=== PATIENT | male | born 1970 | race Caucasian/White ===

== ENCOUNTER 2016-07-10 12:51 | Emergency (ER) | payer OTHER ==
[2016-07-10 12:55] VITALS: BP 150/65; PULSE 99; TEMP 97.9; BMI 34.2
[2016-07-10] MEDS ORDERED: ALBUTEROL SO4 2.5/IPRATROPIUM 0.5 INH SOL 3 ML VIAL.NEB. NEB ONE ×4 (12:57→13:40)
[2016-07-10] MEDS ORDERED: predniSONE 20 MG TABLET (UD) PO ONE (13:20)
[2016-07-10] MEDS ORDERED: predniSONE 20 MG TABLET (UD) ONE (13:22)
--- NOTE | 2016-07-10 13:46 | PDOC ---
History of Present Illness - General Chief Complaint: Asthma Stated Complaint: ASTHMA, WHEEZING Time Seen by Provider: 07/10/16 13:05 History Source: Patient Exam Limitations: No Limitations - History of Present Illness Initial Comments: 07/10/16 13:41 45 yr male with c/o asthma exacerbation after cleaning out bird cages in his apt yesterday. Pt has asthma well controlled at baseline. Pt currently taking Augmentin for URI. Pt has no fever no chest pain. 07/10/16 13:44 07/10/16 17:25 Past History - Past Medical History Allergies/Adverse Reactions: Allergies Allergy/AdvReac Type Severity Reaction Status Date / Time No Known Allergies Allergy Verified 07/10/16 12:55 Home Medications: Ambulatory Orders Albuterol 0.083% Nebulizer Dianna [Ventolin 0.083%] 1 neb NEB Q4H #1 vial 11/07/13 Augmentin 875-125 Tablet mg PO BID 07/10/16 Montelukast Sodium [Singulair] 4 mg PO HS #14 tab.chew 07/10/16 Prednisone [Deltasone -] 40 mg PO DAILY #10 tablet 07/10/16 Asthma: Yes - Family Disease History Comment:: 07/10/16 13:45 denies - Immunization History Immunization Up to Date: Yes - Psycho/Social/Smoking Cessation Hx Anxiety: No Suicidal Ideation: No Smoking Status: No Smoking History: Never smoked Have you smoked in the past 12 months: No Number of Cigarettes Smoked Daily: 0 Information on smoking cessation initiated: No Hx Alcohol Use: No Drug/Substance Use Hx: No Substance Use Type: None Respiratory Specific PMHX - Complaint Specific PMHX Angina: No Bronchitis: Yes Review of Systems - Review of Systems Able to Perform ROS?: Yes Is the patient limited [place] proficient: No Constitutional: No: Symptoms Reported HEENTM: No: Symptoms Reported Respiratory: Yes: See HPI *Physical Exam - Vital Signs Last Vital Signs Temp Pulse Resp BP Pulse Ox 97.9 F 99 H 18 150/65 96 07/10/16 12:54 07/10/16 12:54 07/10/16 12:54 07/10/16 12:54 07/10/16 12:54 - Physical Exam General Appearance: Yes: Nourished, Appropriately Dressed HEENT: positive: EOMI, VARUN, Normal ENT Inspection, TMs Normal, Pharynx Normal Neck: positive: Supple. negative: Tender Respiratory/Chest: positive: Normal Breath Sounds, Wheezing. negative: Rhonchi , Stridor Cardiovascular: positive: Regular Rhythm, Regular Rate Gastrointestinal/Abdominal: positive: Normal Bowel Sounds, Soft Musculoskeletal: positive: Normal Inspection Extremity: positive: Normal Capillary Refill, Normal Inspection, Normal Range of Motion Integumentary: positive: Normal Color, Dry, Warm Neurologic: positive: Fully Oriented, Alert, Normal Mood/Affect, Normal Response , Motor Strength 08/27 ED Treatment Course - Medications Given in the ED: ED Medications Discontinued Medications Generic Name Dose Route Start Last Admin Trade Name Freq PRN Reason Stop Dose Admin Albuterol/Ipratropium 1 amp 07/10/16 12:57 07/10/16 12:57 Duoneb - NEB 07/10/16 12:58 1 amp NOW ONE Administration Albuterol/Ipratropium 1 amp 07/10/16 13:20 07/10/16 13:24 Duoneb - NEB 07/10/16 13:21 1 amp ONCE ONE Administration Prednisone 60 mg 07/10/16 13:20 07/10/16 13:25 Deltasone - PO 07/10/16 13:21 60 mg ONCE ONE Administration Medical Decision Making - Medical Decision Making 07/10/16 13:48 cc: cough wheezing speaking clear sentences no distress will give duoneb, prednisone 07/10/16 17:28 pt improved after nebulizers , speaking full sentences clearly dc home with strict follow up with pulmonary next week pt understands the dc inst all questions asked and answered *DC/Admit/Observation/Transfer Diagnosis at time of Disposition: Asthma exacerbation Qualifiers: Asthma severity: mild intermittent Qualified Code(s): J45.21 - Mild intermittent asthma with (acute) exacerbation - Discharge Dispostion Disposition: HOME Condition at time of disposition: Good - Prescriptions Prescriptions: Prednisone [Deltasone -] 40 mg PO DAILY #10 tablet Montelukast Sodium [Singulair] 4 mg PO HS #14 tab.chew - Patient Instructions Printed Discharge Instructions: Asthma -- Adult Additional Instructions: drink pleanty of fluids rest at home take singulair as directed at bedtime take prednisone, next dose tomorrow follow with your doctor next week - Post Discharge Activity Work/School Note: Back to Work
== END 2016-07-10 14:28 | disposition home or self-care (01) ==
LOC: JERFT 12:51
PROC: 3E0F7GC Introduction of Other Therapeutic Substance into Respiratory Tract, Via Natural or Artificial Opening (ICD-10-PCS; principal; 2016-07-10)
PROC: 3E0F7GC Introduction of Other Therapeutic Substance into Respiratory Tract, Via Natural or Artificial Opening (ICD-10-PCS; 2016-07-10)
DX: J45.21 Mild intermittent asthma with (acute) exacerbation (principal)
CPT/HCPCS: 99281-25

== ENCOUNTER 2016-11-03 03:03 | Emergency (ER) | payer OTHER ==
[2016-11-03] MEDS ORDERED: ALBUTEROL SO4 2.5/IPRATROPIUM 0.5 INH SOL 3 ML VIAL.NEB. NEB ONE (03:09)
--- NOTE | 2016-11-03 03:18 | PDOC ---
History of Present Illness - General History Source: Patient <Ethan Cotton - Last Filed: 11/03/16 03:53> - General History Source: Patient Exam Limitations: No Limitations - History of Present Illness Initial Comments: 11/03/16 04:01 The patient is a 45 year old male with significant past medical history of asthma (no h/o of intubations) who presents to the ED for asthma exacerbation prior to arrival. Patient reports he was outside in the humidity and when he went inside into a much cooler office, he began to feel chest tightness. Patient also reports coughing, SOB and wheezing. Denies conversational dyspnea or dyspnea on exertion. States having multiple episodes of asthma exacerbations that is normally treated with prednisone. Last hospitalization for asthma exacerbation was in the 90s. The patient denies fever, chills, diaphoresis, chest pain, and palpitations. The patient denies abdominal pain, nausea, vomiting, and diarrhea. Allergies: NKDA Social History: No alcohol, tobacco, or drug use reported. Past Surgical History: None reported PCP: None reported <Earnestine Cronin - Last Filed: 11/03/16 04:02> - General Stated Complaint: ASTHMA Time Seen by Provider: 11/03/16 03:16 Past History - Past Medical History Asthma: Yes - Immunization History Immunization Up to Date: Yes - Psycho/Social/Smoking Cessation Hx Anxiety: No Suicidal Ideation: No Smoking Status: No Smoking History: Never smoked Have you smoked in the past 12 months: No Number of Cigarettes Smoked Daily: 0 Hx Alcohol Use: No Drug/Substance Use Hx: No Substance Use Type: None <LulaEthan - Last Filed: 11/03/16 03:53> <Earnestine Cronin - Last Filed: 11/03/16 04:02> - Past Medical History Allergies/Adverse Reactions: Allergies Allergy/AdvReac Type Severity Reaction Status Date / Time No Known Allergies Allergy Verified 11/03/16 03:43 Home Medications: Ambulatory Orders Albuterol 0.083% Nebulizer Dianna [Ventolin 0.083%] 1 neb NEB Q4H #1 vial 11/07/13 Augmentin 875-125 Tablet mg PO BID 07/10/16 Montelukast Sodium [Singulair] 4 mg PO HS #14 tab.chew 03/18/17 Prednisone [Deltasone -] 40 mg PO DAILY #10 tablet 07/10/16 Albuterol 0.083% Nebulizer Dianna [Ventolin 0.083% Nebulizer Soln -] 1 neb NEB Q6H #30 vial 11/03/16 Methylprednisolone [Medrol Dose Kobi] 4 mg PO ASDIR #21 tablet 11/03/16 Review of Systems - Review of Systems Able to Perform ROS?: Yes Comments:: 11/03/16 04:01 CONSTITUTIONAL: Absent: fever, no chills, no fatigue EYES: Absent: visual changes ENT: Absent: ear pain, no sore throat CARDIOVASCULAR: Absent: chest pain, no palpitations RESPIRATORY: +cough, SOB, chest tightness, wheezing GI: Absent: abdominal pain, no nausea, no vomiting, no constipation, no diarrhea GENITOURINARY: Absent: dysuria, no frequency, no hematuria MUSCULOSKELETAL: Absent: back pain, no arthralgia, no myalgia SKIN: Absent: rash NEURO: Absent: headache <Earnestine Cronin - Last Filed: 11/03/16 04:02> *Physical Exam - Vital Signs Last Vital Signs Temp Pulse Resp BP Pulse Ox 98.7 F 73 16 113/80 100 11/03/16 03:43 11/03/16 03:43 11/03/16 03:43 11/03/16 03:43 11/03/16 03:43 - Physical Exam Comments: 11/03/16 04:01 GENERAL: Well-appearing, well-nourished. No apparent distress. HEENT: Normocephalic, atraumatic. PERRL, EOM intact. CARDIOVASCULAR: Normal S1, S2. Regular rate and rhythm. PULMONARY: Mild respiratory distress. Coarse bilateral wheezing. No conversational dyspnea. No retractions. ABDOMEN: Soft, non-distended, non-tender. EXTREMITIES: Normal ROM in all four extremities. No gross deformities. SKIN: Warm, dry. No rash NEUROLOGICAL: No focal neurological deficits. <Earnestine Cronin - Last Filed: 11/03/16 04:02> ED Treatment Course - Medications Given in the ED: ED Medications Discontinued Medications Generic Name Dose Route Start Last Admin Trade Name Freq PRN Reason Stop Dose Admin Prednisone 60 mg 11/03/16 03:19 11/03/16 03:34 Deltasone - PO 11/03/16 03:20 60 mg ONCE ONE Administration <Earnestine Cronin - Last Filed: 11/03/16 04:02> Medical Decision Making - Medical Decision Making 11/03/16 03:57 Dr. Cotton: The scribe's documentation has been prepared under my direction and personally reviewed by me in its entirery. I confirm that the note above accurately reflects all work, treatment, procedures, and medical decision making performed by me. 11/03/16 03:57 Pt feels better after an albuterol nebulizer. No BERGMAN. Pt to be discharged <Ethan Cotton - Last Filed: 11/03/16 03:53> *DC/Admit/Observation/Transfer - Discharge Dispostion Admit: No <Ethan Cotton - Last Filed: 11/03/16 03:53> - Attestations Scribe Attestion: 11/03/16 04:01 Documentation prepared by Earnestine Cronin, acting as medical record specialist for Ethan Cotton MD/DO. <Earnestine Cronin - Last Filed: 11/03/16 04:02> Diagnosis at time of Disposition: Asthma exacerbation - Discharge Dispostion Disposition: HOME Condition at time of disposition: Stable - Prescriptions Prescriptions: Methylprednisolone [Medrol Dose Kobi] 4 mg PO ASDIR #21 tablet Albuterol 0.083% Nebulizer Dianna [Ventolin 0.083% Nebulizer Soln -] 1 neb NEB Q6H #30 vial - Referrals Referrals: STAFF,NOT ON [Primary Care Provider] - Mahin Garnica MD [Staff Physician] - - Patient Instructions Printed Discharge Instructions: Asthma -- Adult - Post Discharge Activity Work/School Note: Back to Work
[2016-11-03] MEDS ORDERED: predniSONE 20 MG TABLET (UD) PO ONE (03:19)
[2016-11-03] MEDS ORDERED: predniSONE 20 MG TABLET (UD) ONE (03:31)
[2016-11-03 03:46] VITALS: BP 113/80; PULSE 73; TEMP 98.7; BMI 35.6
== END 2016-11-03 04:02 | disposition home or self-care (01) ==
LOC: JER 03:03
PROC: 3E0F7GC Introduction of Other Therapeutic Substance into Respiratory Tract, Via Natural or Artificial Opening (ICD-10-PCS; principal; 2016-11-03)
DX: J45.901 Unspecified asthma with (acute) exacerbation (principal)
CPT/HCPCS: 99281-25

== ENCOUNTER 2017-04-01 05:55 | Emergency (ER) | payer OTHER ==
[2017-04-01 06:05] VITALS: BP 123/83; PULSE 93; TEMP 97.6; BMI 37.4
--- NOTE | 2017-04-01 07:16 | PDOC ---
History of Present Illness - General Chief Complaint: Cold Symptoms Stated Complaint: COUGH Time Seen by Provider: 04/01/17 07:12 History Source: Patient - History of Present Illness Initial Comments: 04/01/17 07:46 46yo man with PMH of asthma (no h/o intubations) who presents with 1x day of productive cough and dyspnea. He was at the veterinary office yesterday when his cough started. He has cats at home, but feels the exposure to dogs may have exacerbated his allergies. Around 3AM he started to feel sob, which was unrelieved by Albuterol inhaler, which initiated him to come to the ED. He was recently treated with a course of steroids completed 1.5 weeks ago. No recent antibiotic use. 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 No recent travel. He denies any fever, chills, sore throat. No dysuria or changed in BM. Past History - Travel Traveled outside of the country in the last 30 days: No Close contact w/someone who was outside of country & ill: No - Past Medical History Allergies/Adverse Reactions: Allergies Allergy/AdvReac Type Severity Reaction Status Date / Time No Known Allergies Allergy Verified 04/01/17 06:03 Home Medications: Ambulatory Orders Albuterol 0.083% Nebulizer Dianna [Ventolin 0.083%] 1 neb NEB Q4H #1 vial 11/07/13 Asthma: Yes - Immunization History Immunization Up to Date: Yes - Suicide/Smoking/Psychosocial Hx Smoking Status: No Smoking History: Never smoked Have you smoked in the past 12 months: No Number of Cigarettes Smoked Daily: 0 Information on smoking cessation initiated: No Hx Alcohol Use: No Drug/Substance Use Hx: No Substance Use Type: None *Physical Exam - Vital Signs Last Vital Signs Temp Pulse Resp BP Pulse Ox 97.6 F 93 H 24 123/83 97 04/01/17 06:03 04/01/17 06:03 04/01/17 06:03 04/01/17 06:03 04/01/17 06:03 - Physical Exam General Appearance: Yes: Nourished, Appropriately Dressed HEENT: positive: TMs Normal, Pharynx Normal Neck: positive: Supple. negative: Lymphadenopathy (R), Lymphadenopathy (L) Respiratory/Chest: positive: Lungs Clear, Normal Breath Sounds, Other. negative : Wheezing Cardiovascular: positive: Regular Rhythm, Regular Rate, S1, S2 Gastrointestinal/Abdominal: positive: Soft, Protuberent. negative: Tenderness Neurologic: positive: Fully Oriented, Alert ED Treatment Course - RADIOLOGY Radiology Studies Ordered: Category Date Time Status CHEST PA & LAT [RAD] Stat Radiology 04/01/17 07:13 Ordered Medical Decision Making - Medical Decision Making 04/01/17 08:05 46yo man with productive cough and dyspnea for less than 24hours. Patient had received 1 duo neb prior to my physical exam, which has improved his symptoms. He is speaking in full sentences without dyspnea and walking to the restroom without distress. No wheezes appreciated on physical exam. Will give another duo neb treatment and reassess. 04/01/17 08:08 Peak flow 450 x2. 04/01/17 09:27 Patient's breathing improved with 2nd duo neb. No further episodes of wheezing. Patient is well appearing and vital signs are stable. Patient's reports he his going to see his PCP Dr. Cordova directly from here. *DC/Admit/Observation/Transfer Diagnosis at time of Disposition: Asthma exacerbation - Discharge Dispostion Disposition: HOME Condition at time of disposition: Stable Admit: No - Referrals Referrals: Josemanuel Cordova [Primary Care Provider] - - Patient Instructions Printed Discharge Instructions: DI for Asthma -- Adult Additional Instructions: Please make an appointment with your primary care physician in the next 2-3 days. Continue to take your Albuterol inhaler as directed. Please return to the Emergency Department if you feel continually short of breath, you have new, worsening, or concerning symptoms. - Post Discharge Activity Forms/Work/School Notes: Back to Work
--- NOTE | 2017-04-01 07:23 | PDOC ---
Attending Attestation - Resident Resident Name: Cathryn Juarez - HPI HPI: 04/01/17 07:56 pt presents to the ED complaining of a 12 hour history of cough, wheezing and shortness of breath consistent with prior asthma exacerbations. Denies fever. Recent history of a similar asthma exacerbation, which was treated with nebs and steroids. Patient reports improvement in his symptoms with duoneb x 1. - Physicial Exam PE: 04/01/17 08:01 Agree with resident exam. Patient is speaking in complete sentences without respiratory distress. Lungs are clear with good air entry. - Medical Decision Making 04/01/17 08:04 Pt presents to the ED with wheezing and cough consistent with prior asthma exacerbations that has lasted less than 12 hours. Dramatic improvement with duonebs. Will discharge home with follow up with PMD.
[2017-04-01] MEDS ORDERED: ALBUTEROL SO4 2.5/IPRATROPIUM 0.5 INH SOL 3 ML VIAL.NEB. NEB ONE ×2 (07:56→08:13)
== END 2017-04-01 09:15 | disposition home or self-care (01) ==
LOC: JER 05:55
PROC: 3E0F7GC Introduction of Other Therapeutic Substance into Respiratory Tract, Via Natural or Artificial Opening (ICD-10-PCS; principal; 2017-04-01)
DX: J45.901 Unspecified asthma with (acute) exacerbation (principal)
CPT/HCPCS: 71020-TC; 99281-25

== ENCOUNTER 2017-04-21 11:00 | Emergency (ER) | payer OTHER ==
[2017-04-21 11:14] VITALS: BP 131/82; PULSE 83; TEMP 97; BMI 37.4
[2017-04-21] MEDS ORDERED: TOBRAMYCIN 0.3% OPHTH SOLN 5 ML BOTTLE OD ONE (11:33)
--- NOTE | 2017-04-21 11:36 | PDOC ---
History of Present Illness - General Chief Complaint: Eye Problem Stated Complaint: EYE PROBLEM Time Seen by Provider: 04/21/17 11:22 History Source: Patient Exam Limitations: No Limitations - History of Present Illness Initial Comments: 04/21/17 11:30 CHIEF COMPLAINT: Woke up today with redness and drainage to the right eye. HISTORY OF PRESENT ILLNESS: Patient is a 46-year-old male with history of environmental allergens, chronic sinusitis with no sinus pain now, and asthma woke up this morning with drainage and tearing to right eye, denies pain or visual disturbance. No photophobia. Unknown injury reports having multiple cats in his home. Visual acuity is 20/20. Does not wear corrective lenses. REVIEW OF SYSTEMS: GENERAL/CONSTITUTIONAL: No fever or chills. No weakness. No weight change. HEAD, EYES, EARS, NOSE AND THROAT: No change in vision. Drainage and redness to right eye. No ear pain or discharge. No sore throat. RESPIRATORY: No cough, wheezing, or hemoptysis. SKIN : No rash or easy bruising. NEUROLOGIC: No headache, vertigo, loss of consciousness, or loss of sensation. HEMATOLOGIC/LYMPHATIC: No lymphadenopathy ALLERGIC/IMMUNOLOGIC: No hives or skin allergy. No latex allergy. PHYSICAL EXAM: GENERAL: The patient is awake, alert, and fully oriented, in no acute distress. HEAD: Normal with no signs of trauma. EYES: Pupils equal, round and reactive to light, extraocular movements intact, sclera anicteric, conjunctiva injected, extending to limbus after fluorescein staining, no corneal abrasion noted. No frontal sinus pressure or pain. ENT: Ears normal, nares patent, oropharynx clear without exudates. Moist mucous membranes. NECK: Normal range of motion, supple without lymphadenopathy, JVD, or masses. LUNGS: Breath sounds equal, clear to auscultation bilaterally. No wheezes, and no crackles. NEUROLOGICAL: Cranial nerves II through XII grossly intact. Normal speech, normal gait. SKIN: No erythema no facial edema. Warm, Dry, normal turgor, no rashes or lesions noted. 04/21/17 11:33 Past History - Past Medical History Allergies/Adverse Reactions: Allergies Allergy/AdvReac Type Severity Reaction Status Date / Time No Known Allergies Allergy Verified 04/21/17 11:14 Home Medications: Ambulatory Orders Albuterol 0.083% Nebulizer Dianna [Ventolin 0.083% Nebulizer Soln -] 1 neb NEB Q4H #1 vial 11/07/13 Tobramycin 0.3% Ophth Soln [Tobrex *Ophthalmic Solution*] 1 drop OD Q4HWA #1 drops 04/21/17 Asthma: Yes CVA: No COPD: No - Immunization History Immunization Up to Date: Yes - Suicide/Smoking/Psychosocial Hx Smoking Status: No Smoking History: Never smoked Have you smoked in the past 12 months: No Number of Cigarettes Smoked Daily: 0 Hx Alcohol Use: No Drug/Substance Use Hx: No Substance Use Type: None *Physical Exam - Vital Signs Last Vital Signs Temp Pulse Resp BP Pulse Ox 97 F L 83 18 131/82 99 04/21/17 11:12 04/21/17 11:12 04/21/17 11:12 04/21/17 11:12 04/21/17 11:12 Medical Decision Making - Medical Decision Making 04/21/17 11:32 A/P: Patient here for evaluation of redness with tearing to right eye no injury , no point no abrasion, clinical signs highly suspicious for conjunctivitis patient is following up with ophthalmology will DC patient on Tobrex. I discussed the physical exam findings, ancillary test results and final diagnoses with the patient. I answered all of the patient's questions. The patient was satisfied with the care received and felt comfortable with the discharge plan and treatment plan. The patient will call to arrange follow-up and will return to the Emergency Department with any new, persistent or worsening symptoms. 04/21/17 11:34 *DC/Admit/Observation/Transfer Diagnosis at time of Disposition: Conjunctivitis Qualifiers: Conjunctivitis type: acute Acute conjunctivitis type: unspecified Laterality: right Qualified Code(s): H10.31 - Unspecified acute conjunctivitis, right eye - Discharge Dispostion Disposition: HOME Condition at time of disposition: Good Admit: No - Prescriptions Prescriptions: Tobramycin 0.3% Ophth Soln [Tobrex *Ophthalmic Solution*] 1 drop OD Q4HWA #1 drops - Referrals Referrals: Hever Fuller MD [Staff Physician] - - Patient Instructions Printed Discharge Instructions: Conjunctivitis Additional Instructions: * Refrain from touching or scratching eye * Please wash hands frequently * Please followup with his primary care doctor in 2 days if symptoms persist * Medication as prescribed * Warm compresses to eye * If increased redness, swelling, pain to the eye please follow up with primary care doctor immediately or return to emergency room - Post Discharge Activity Forms/Work/School Notes: Back to Work
[2017-04-21] MEDS ORDERED: TOBRAMYCIN 0.3% OPHTH SOLN 5 ML BOTTLE ONE (11:37)
== END 2017-04-21 11:40 | disposition home or self-care (01) ==
LOC: JERFT 11:00
DX: H10.31 Unspecified acute conjunctivitis, right eye (principal)
CPT/HCPCS: 99281-25

== ENCOUNTER 2017-08-21 10:28 | Emergency (ER) | payer OTHER | END 2017-08-21 11:30 | disposition home or self-care (01) | LOC: JERFT 10:28 | CPT/HCPCS: 73070-TC-LT-FY; 99281-25 ==

== ENCOUNTER 2018-01-06 14:58 | Emergency (ER) | payer OTHER ==
--- NOTE | 2018-01-06 15:14 | PDOC ---
Rapid Medical Evaluation Time Seen by Provider: 01/06/18 15:12 Medical Evaluation: Allergies Allergy/AdvReac Type Severity Reaction Status Date / Time No Known Allergies Allergy Verified 08/21/17 10:30 01/06/18 15:13 I have performed a brief in-person evaluation of this patient. The patient presents with a chief complaint of:R foot injury today Pertinent physical exam findings:ttp to mid aspect of R 5th metatarsal, no swelling I have ordered the following:xray The patient will proceed to the ED for further evaluation. Discharge Disposition - Diagnosis Foot injury Qualifiers: Encounter type: initial encounter Laterality: right Qualified Code(s): S99.921A - Unspecified injury of right foot, initial encounter - Referrals - Patient Instructions - Post Discharge Activity
[2018-01-06 15:17] VITALS: BP 136/90; PULSE 88; TEMP 99.1; BMI 35.6
[2018-01-06] MEDS ORDERED: IBUPROFEN 400 MG TABLET (FP) PO ONE (16:25)
--- NOTE | 2018-01-06 16:28 | PDOC ---
History of Present Illness - General Chief Complaint: Pain Stated Complaint: RIGHT FOOT PAIN Time Seen by Provider: 01/06/18 15:12 History Source: Patient Exam Limitations: No Limitations - History of Present Illness Initial Comments: 01/06/18 16:29 47 yr male twisted right foot Sept 10th in a parking lot then today stepped on the cat tail and twisted the foot causing more pain . Past History - Past Medical History Allergies/Adverse Reactions: Allergies Allergy/AdvReac Type Severity Reaction Status Date / Time No Known Allergies Allergy Verified 01/06/18 15:14 Home Medications: Ambulatory Orders NK [No Known Home Medication] 08/21/17 Asthma: Yes CVA: No COPD: No DVT: No - Immunization History Immunization Up to Date: Yes - Suicide/Smoking/Psychosocial Hx Smoking Status: No Smoking History: Never smoked Have you smoked in the past 12 months: No Number of Cigarettes Smoked Daily: 0 Hx Alcohol Use: No Drug/Substance Use Hx: No Substance Use Type: None *Physical Exam - Vital Signs Last Vital Signs Temp Pulse Resp BP Pulse Ox 99.1 F 88 18 136/90 99 01/06/18 15:15 01/06/18 15:15 01/06/18 15:15 01/06/18 15:15 01/06/18 15:15 - Physical Exam General Appearance: Yes: Nourished, Appropriately Dressed HEENT: positive: EOMI, VARUN Extremity: positive: Normal Capillary Refill, Normal Inspection, Tender (base of fifth metatarsal right foot , nv intact) Integumentary: positive: Normal Color, Dry, Warm Neurologic: positive: Fully Oriented, Alert, Normal Mood/Affect, Normal Response , Motor Strength 5/5 *DC/Admit/Observation/Transfer Diagnosis at time of Disposition: Foot injury Qualifiers: Encounter type: initial encounter Laterality: right Qualified Code(s): S99.921A - Unspecified injury of right foot, initial encounter Foot fracture, right Qualifiers: Encounter type: initial encounter Fracture type: closed Qualified Code(s): S92.901A - Unspecified fracture of right foot, initial encounter for closed fracture - Discharge Dispostion Disposition: HOME Condition at time of disposition: Good - Referrals Referrals: Josemanuel Cordova [Primary Care Provider] - Julio César Iyer MD [Staff Physician] - - Patient Instructions Additional Instructions: follow with elevate and apply ice every 2hrs for 20 minutes for the next 2 days while awake take ibuprofen 800mg every 6-8hrs for pain use the schuyler wrap and the hard sole shoe - Post Discharge Activity Forms/Work/School Notes: Back to Work
== END 2018-01-06 17:14 | disposition home or self-care (01) ==
LOC: JER 14:58 → JERFT 14:58
DX: S99.921A Unspecified injury of right foot, initial encounter (principal); X58.XXXA Exposure to other specified factors, initial encounter; Y93.89 Activity, other specified; Y92.9 Unspecified place or not applicable; S92.901A Unspecified fracture of right foot, initial encounter for closed fracture; W55.09XA Other contact with cat, initial encounter; Y92.410 Unspecified street and highway as the place of occurrence of the external cause; J45.909 Unspecified asthma, uncomplicated
CPT/HCPCS: 73630-TC-RT-FY; 99281-25

== ENCOUNTER 2018-05-29 06:30 | Emergency (ER) | payer OTHER | END 2018-05-29 10:53 | disposition home or self-care (01) | LOC: JER 06:30 ==

== ENCOUNTER 2020-09-02 05:17 | Emergency (ER) | payer OTHER ==
[2020-09-02 05:28] VITALS: TEMP 97.8; BMI 35.6
[2020-09-02] MEDS ORDERED: ALBUTEROL SO4 2.5/IPRATROPIUM 0.5 INH SOL 3 ML VIAL.NEB. NEB ONE ×2 (05:40→06:07)
[2020-09-02] MEDS ORDERED: methylPREDNISolone NA SUCC 125 MG/2 ML VIAL IVPUSH ONE (05:41)
[2020-09-02] MEDS ORDERED: methylPREDNISolone NA SUCC 125 MG/2 ML VIAL ONE (05:43)
[2020-09-02 06:19] LABS: BASO % 0.8 % (0-2.0); EOS % 3.3 % (0-4.5); HEMATOCRIT 40.8 % (35.4-49); LYMPH % 39.7 % (8-40); MCH 37.2 pg (25.7-33.7); MCHC 36.8 g/dl (32.0-35.9); MEAN CELL VOLUME 101.3 fl (80-96); MEAN PLT VOLUME 7.8 fl (7.5-11.1); NEUT % 47.2 % (42.8-82.8); PLATELET COUNT 107 K/MM3 (134-434); RBC 4.03 M/mm3 (4.00-5.60); RDW 13.9 % (11.9-15.9); WHITE BLOOD COUNT 3.7 K/mm3 (4.0-10.0)
[2020-09-02 06:30] LABS: CHLORIDE 103 mmol/L (98-107); SODIUM 121 mmol/L (136-145)
[2020-09-02 06:33] LABS: ALBUMIN 2.8 g/dl (3.4-5.0); BLOOD UREA NITROGEN 23.1 mg/dL (7-18); CALCIUM 7.1 mg/dL (8.5-10.1); CO2 26 mmol/L (21-32); GLUCOSE,RANDOM 97 mg/dL (74-106)
[2020-09-02 06:36] LABS: CREATININE 0.9 mg/dL (0.55-1.3)
[2020-09-02 07:01] LABS: ANION GAP -8 MMOL/L (8-16); TOT PROT 9.2 g/dl (6.4-8.2)
[2020-09-02 07:31] LABS: CALCIUM 7.9 mg/dL (8.5-10.1)
[2020-09-02 07:32] LABS: BLOOD UREA NITROGEN 20.9 mg/dL (7-18)
[2020-09-02 07:35] LABS: CREATININE 0.9 mg/dL (0.55-1.3)
[2020-09-02 07:39] LABS: N-TERMINAL BNP 17.8 pg/ml (5-125)
[2020-09-02 08:05] VITALS: BP 144/88; PULSE 108
[2020-09-02 08:09] LABS: BLOOD UREA NITROGEN 20.9 mg/dL (7-18); CALCIUM 8.1 mg/dL (8.5-10.1)
[2020-09-02 08:13] LABS: CREATININE 0.9 mg/dL (0.55-1.3)
[2020-09-02 08:17] LABS: N-TERMINAL BNP 17.8 pg/ml (5-125)
== END 2020-09-02 08:05 | disposition home or self-care (01) ==
LOC: JER 05:17
PROC: 3E0F7GC Introduction of Other Therapeutic Substance into Respiratory Tract, Via Natural or Artificial Opening (ICD-10-PCS; principal; 2020-09-02)
PROC: 3E033GC Introduction of Other Therapeutic Substance into Peripheral Vein, Percutaneous Approach (ICD-10-PCS; 2020-09-02)
DX: J45.21 Mild intermittent asthma with (acute) exacerbation (principal)
CPT/HCPCS: 36415; 71045-TC-FY; 80048; 80053; 82550; 83880; 84484; 85025; 93005; 93010; 99285-25

== ENCOUNTER 2021-01-10 05:49 | Emergency (ER) | payer OTHER ==
[2021-01-10 06:03] VITALS: PULSE 82; TEMP 98.5; BMI 36.6
[2021-01-10 08:28] VITALS: BP 136/92
== END 2021-01-10 08:30 | disposition home or self-care (01) ==
LOC: JER 05:49
DX: J45.909 Unspecified asthma, uncomplicated (principal)
CPT/HCPCS: 99283-25

== ENCOUNTER 2021-01-29 05:59 | Emergency (ER) | payer OTHER ==
[2021-01-29 06:08] VITALS: BP 140/76; PULSE 90; TEMP 98.8; BMI 35.2
== END 2021-01-29 08:50 | disposition home or self-care (01) ==
LOC: JER 05:59
DX: M79.671 Pain in right foot (principal)
CPT/HCPCS: 73630-TC-RT-FY; 99283-25

== ENCOUNTER 2021-02-20 06:09 | Emergency (ER) | payer OTHER ==
[2021-02-20 06:16] VITALS: BP 122/89; PULSE 89; TEMP 98; BMI 42.3
[2021-02-20] MEDS ORDERED: ALBUTEROL SO4 2.5/IPRATROPIUM 0.5 INH SOL 3 ML VIAL.NEB. NEB ONE ×2 (06:18→06:27)
[2021-02-20] MEDS ORDERED: predniSONE 20 MG TABLET (UD) PO ONE (06:19)
[2021-02-20] MEDS ORDERED: predniSONE 20 MG TABLET (UD) ONE (06:27)
== END 2021-02-20 06:46 | disposition home or self-care (01) ==
LOC: FER 06:09
PROC: 3E0F7GC Introduction of Other Therapeutic Substance into Respiratory Tract, Via Natural or Artificial Opening (ICD-10-PCS; principal; 2021-02-20)
DX: J45.20 Mild intermittent asthma, uncomplicated (principal)
CPT/HCPCS: 99284-25

== ENCOUNTER 2021-03-25 05:03 | Emergency (ER) | payer OTHER ==
[2021-03-25 05:42] VITALS: BP 128/85; PULSE 85; TEMP 98.3; BMI 38.0
[2021-03-25] MEDS ORDERED: ALBUTEROL SO4 2.5/IPRATROPIUM 0.5 INH SOL 3 ML VIAL.NEB. NEB ONE ×3 (06:02→06:24)
[2021-03-25] MEDS ORDERED: DEXAMETHASONE SOD PHOSPHATE 10 MG/1 ML VIAL IVPUSH ONE (06:04)
[2021-03-25] MEDS ORDERED: DEXAMETHASONE SOD PHOSPHATE 10 MG/1 ML VIAL ONE (06:16)
== END 2021-03-25 07:08 | disposition home or self-care (01) ==
LOC: JER 05:03
PROC: 3E0F7GC Introduction of Other Therapeutic Substance into Respiratory Tract, Via Natural or Artificial Opening (ICD-10-PCS; principal; 2021-03-25)
DX: J45.901 Unspecified asthma with (acute) exacerbation (principal)
CPT/HCPCS: 99285-25

== ENCOUNTER 2021-05-18 04:25 | Emergency (ER) | payer OTHER ==
[2021-05-18 04:36] VITALS: BP 129/80; PULSE 94; BMI 36.6
[2021-05-18] MEDS ORDERED: predniSONE 20 MG TABLET (UD) PO STA (04:38)
[2021-05-18] MEDS ORDERED: ALBUTEROL SO4 2.5/IPRATROPIUM 0.5 INH SOL 3 ML VIAL.NEB. NEB ONE ×2 (04:38→04:39)
[2021-05-18] MEDS ORDERED: predniSONE 10 MG TABLET (UD) ONE (04:39)
[2021-05-18] MEDS ORDERED: predniSONE 20 MG TABLET (UD) ONE (04:39)
== END 2021-05-18 04:57 | disposition home or self-care (01) ==
LOC: FER 04:25
PROC: 3E0F7GC Introduction of Other Therapeutic Substance into Respiratory Tract, Via Natural or Artificial Opening (ICD-10-PCS; principal; 2021-05-18)
DX: J45.909 Unspecified asthma, uncomplicated (principal)
CPT/HCPCS: 99283-25

== ENCOUNTER 2021-06-04 04:39 | Emergency (ER) | payer OTHER ==
[2021-06-04 05:03] VITALS: BP 123/83; PULSE 77; TEMP 98.1; BMI 36.0
[2021-06-04 06:37] LABS: URINE APPEARANCE CLEAR; URINE BILIRUBIN NEGATIVE (NEGATIVE); URINE COLOR YELLOW; URINE GLUCOSE (UA) NEGATIVE (NEGATIVE); URINE KETONE NEGATIVE (NEGATIVE); URINE LEUK ESTERASE NEGATIVE (NEGATIVE); URINE NITRITE NEGATIVE (NEGATIVE); URINE PROTEIN NEGATIVE (NEGATIVE); URINE UROBILINOGEN 0.2 mg/dL (0.2-1.0)
== END 2021-06-04 05:48 | disposition home or self-care (01) ==
LOC: FER 04:39
DX: J20.9 Acute bronchitis, unspecified (principal)
CPT/HCPCS: 71046-TC-FY; 81003; 99284-25

== ENCOUNTER 2021-06-21 06:14 | Emergency (ER) | payer OTHER ==
[2021-06-21] MEDS ORDERED: ALBUTEROL SO4 2.5/IPRATROPIUM 0.5 INH SOL 3 ML VIAL.NEB. NEB ONE ×2 (06:18→06:46)
[2021-06-21 06:30] VITALS: BP 143/87; PULSE 82; TEMP 98.2; BMI 36.0
[2021-06-21] MEDS ORDERED: predniSONE 20 MG TABLET (UD) ONE (06:43)
[2021-06-21] MEDS ORDERED: predniSONE 20 MG TABLET (UD) PO ONE (06:46)
== END 2021-06-21 06:49 | disposition home or self-care (01) ==
LOC: FER 06:14
PROC: 3E0F7GC Introduction of Other Therapeutic Substance into Respiratory Tract, Via Natural or Artificial Opening (ICD-10-PCS; principal; 2021-06-21)
DX: J45.21 Mild intermittent asthma with (acute) exacerbation (principal)
CPT/HCPCS: 99283-25

== ENCOUNTER 2021-07-10 04:55 | Emergency (ER) | payer OTHER ==
[2021-07-10] MEDS ORDERED: ALBUTEROL SO4 2.5/IPRATROPIUM 0.5 INH SOL 3 ML VIAL.NEB. NEB ONE ×2 (05:04)
[2021-07-10] MEDS ORDERED: predniSONE 20 MG TABLET (UD) PO ONE (05:04)
[2021-07-10 05:10] VITALS: BP 136/89; PULSE 92; TEMP 97.9; BMI 36.0
[2021-07-10] MEDS ORDERED: predniSONE 20 MG TABLET (UD) ONE (05:10)
== END 2021-07-10 05:25 | disposition home or self-care (01) ==
LOC: FER 04:55
PROC: 3E0F7GC Introduction of Other Therapeutic Substance into Respiratory Tract, Via Natural or Artificial Opening (ICD-10-PCS; principal; 2021-07-10)
DX: J45.21 Mild intermittent asthma with (acute) exacerbation (principal)
CPT/HCPCS: 99283-25

== ENCOUNTER 2021-07-31 05:39 | Emergency (ER) | payer OTHER ==
[2021-07-31 05:50] VITALS: BP 130/80; PULSE 85; TEMP 98.3; BMI 36.0
[2021-07-31] MEDS ORDERED: predniSONE 20 MG TABLET (UD) PO ONE (05:56)
[2021-07-31] MEDS ORDERED: predniSONE 20 MG TABLET (UD) ONE (05:56)
[2021-07-31] MEDS ORDERED: ALBUTEROL SO4 2.5/IPRATROPIUM 0.5 INH SOL 3 ML VIAL.NEB. NEB ONE ×2 (05:56→05:57)
== END 2021-07-31 06:28 | disposition home or self-care (01) ==
LOC: FER 05:39
PROC: 3E0F7GC Introduction of Other Therapeutic Substance into Respiratory Tract, Via Natural or Artificial Opening (ICD-10-PCS; principal; 2021-07-31)
DX: J45.909 Unspecified asthma, uncomplicated (principal)
CPT/HCPCS: 99283-25

== ENCOUNTER 2021-08-31 07:00 | Emergency (ER) | payer OTHER ==
[2021-08-31 07:09] VITALS: BP 140/77; PULSE 93; TEMP 98.4; BMI 36.6
[2021-08-31] MEDS ORDERED: predniSONE 20 MG TABLET (UD) PO ONE (07:16)
[2021-08-31] MEDS ORDERED: ALBUTEROL SO4 2.5/IPRATROPIUM 0.5 INH SOL 3 ML VIAL.NEB. NEB ONE ×2 (07:16→07:24)
[2021-08-31] MEDS ORDERED: predniSONE 20 MG TABLET (UD) ONE (07:24)
== END 2021-08-31 07:47 | disposition home or self-care (01) ==
LOC: FER 07:00
PROC: 3E0F7GC Introduction of Other Therapeutic Substance into Respiratory Tract, Via Natural or Artificial Opening (ICD-10-PCS; principal; 2021-08-31)
DX: J45.909 Unspecified asthma, uncomplicated (principal)
CPT/HCPCS: 99283-25

== ENCOUNTER 2022-06-20 05:57 | Emergency (ER) | payer OTHER ==
[2022-06-20 06:05] VITALS: BP 153/95; PULSE 94; RESP 18; TEMP 97.9; BMI 36.6
[2022-06-20] MEDS ORDERED: SULFAMETHOXAZOLE/TRIMETHOPRIM 800MG/160MG D.S. TABLET PO ONE (06:26)
[2022-06-20] MEDS ORDERED: SULFAMETHOXAZOLE/TRIMETHOPRIM 800MG/160MG D.S. TABLET ONE (06:27)
== END 2022-06-20 06:30 | disposition home or self-care (01) ==
LOC: FER 05:57
PROC: 0H98XZZ Drainage of Buttock Skin, External Approach (ICD-10-PCS; principal; 2022-06-20)
DX: S30.820A Blister (nonthermal) of lower back and pelvis, initial encounter (principal); L08.89 Other specified local infections of the skin and subcutaneous tissue; Y99.9 Unspecified external cause status
CPT/HCPCS: 99283-25

== ENCOUNTER 2022-09-29 06:42 | Emergency (ER) | payer BC, OTHER ==
[2022-09-29 06:53] VITALS: BP 146/87; PULSE 87; RESP 18; TEMP 98.2; BMI 36.6
[2022-09-29] MEDS ORDERED: LORATADINE 10 MG TABLET PO ONE (07:04)
[2022-09-29] MEDS ORDERED: LORATADINE 10 MG TABLET ONE (07:07)
[2022-09-29] MEDS ORDERED: POLYMYXIN B SULFATE/TMP 10 ML OPHTHALMIC SOLUTION OD SCH (07:15)
== END 2022-09-29 07:22 | disposition home or self-care (01) ==
LOC: FER 06:42
DX: H57.89 Other specified disorders of eye and adnexa (principal); H10.31 Unspecified acute conjunctivitis, right eye
CPT/HCPCS: 99283-25